=== PATIENT | female | born 1985 | race Caucasian/White ===

== ENCOUNTER → 2018-10-23 | Outpatient (CLI) | payer OTHER | LOC: BRMIMAGING 09:09 | DX: Z12.31 Encounter for screening mammogram for malignant neoplasm of breast (principal); N63.10 Unspecified lump in the right breast, unspecified quadrant; Z85.3 Personal history of malignant neoplasm of breast; Z80.3 Family history of malignant neoplasm of breast | CPT/HCPCS: 76641-PO ==

== ENCOUNTER → 2018-11-04 | Outpatient (CLI) | payer OTHER | LOC: FIMAGING 07:04 ==